=== PATIENT | male | born 1960 | race Caucasian/White ===

== ENCOUNTER 2018-02-02 08:33 | Day surgery (SDC) | payer OTHER ==
[~2018-02-02 08:33] MED LIST: LIDOCAINE 2% MDV 20 ML VIAL As Ordered; PROPOFOL 200 MG/20 ML VIAL As Ordered
[2018-02-02] MEDS: NS 1,000 ML IV (09:30)
== END 2018-02-02 11:00 | disposition home or self-care (01) ==
LOC: M OPP 08:33
DX: Z12.11 Encounter for screening for malignant neoplasm of colon (principal); Z80.0 Family history of malignant neoplasm of digestive organs; Z83.71 Family history of colonic polyps; K57.30 Diverticulosis of large intestine without perforation or abscess without bleeding; K21.9 Gastro-esophageal reflux disease without esophagitis; R12 Heartburn; Z85.828 Personal history of other malignant neoplasm of skin; Z79.82 Long term (current) use of aspirin; Z79.899 Other long term (current) drug therapy; Z80.7 Family history of other malignant neoplasms of lymphoid, hematopoietic and related tissues; Z80.8 Family history of malignant neoplasm of other organs or systems
CPT/HCPCS: 45378

== ENCOUNTER → 2021-06-16 | Outpatient (CLI) | payer OTHER ==
[~2021-06-16] MED LIST changes: +ASPI81TA86 PO; -LIDOCAINE 2% MDV 20 ML VIAL As Ordered; +MULTCAP11 PO; -PROPOFOL 200 MG/20 ML VIAL As Ordered; +RANI150T PO; +VALA1TAB5 PO
--- NOTE | 2021-06-16 11:11 | REP ---
INDICATION: PAIN IN LT HIP. COMPARISON: None. TECHNIQUE: AP view of the pelvis. FINDINGS: An AP view of the pelvis demonstrates an intact bony pelvic ring. Femoral heads are smooth and rounded hip joint spaces are preserved. Periarticular soft tissues are unremarkable. Sacrum and SI joints appear intact. Symphysis pubis is unremarkable. IMPRESSION: Negative AP view of the pelvis. <Electronically signed by Fabio Orozco > 06/16/21 [id number]
--- NOTE | 2021-06-16 11:15 | REP ---
INDICATION: PAIN IN LT HIP. COMPARISON: None. TECHNIQUE: AP and frogleg views of the left hip are obtained. Three views. FINDINGS: The left femoral head is smooth and rounded hip joint space is preserved. Periarticular soft tissues are unremarkable. No fracture or bony destructive lesion is seen. The visualized left hemipelvis is unremarkable. IMPRESSION: The negative left hip radiographs. No acute abnormality. <Electronically signed by Fabio Orozco > 06/16/21 [id number]
== END ==
LOC: M SOG 08:31
PROVIDERS: ATTEND Orthopaedic Surgery Adult Reconstructive Orthopaedic Surgery
DX: M25.552 Pain in left hip (principal)

== ENCOUNTER → 2022-05-15 | Outpatient (CLI) | payer OTHER ==
[~2022-05-15] MED LIST changes: +PROHANCE 279.3MG/ML 15ML VIAL As Ordered ONE
== END ==
LOC: M RAD 08:51
PROVIDERS: ATTEND Family Medicine
DX: R19.02 Left upper quadrant abdominal swelling, mass and lump (principal)

== ENCOUNTER → 2022-08-05 | Outpatient (CLI) | payer OTHER, SELFPAY ==
[~2022-08-05] MED LIST changes: -PROHANCE 279.3MG/ML 15ML VIAL As Ordered ONE
== END ==
LOC: M OUTALCOH 07:40
PROVIDERS: ATTEND Psychiatry & Neurology Psychiatry
DX: Z13.30 Encounter for screening examination for mental health and behavioral disorders, unspecified (principal)

== ENCOUNTER 2022-08-12 10:51 | Outpatient (RCR) | payer OTHER | END 2022-08-27 | LOC: M OUTALCOH 10:51 | PROVIDERS: ATTEND Psychiatry & Neurology Psychiatry | DX: Z03.89 Encounter for observation for other suspected diseases and conditions ruled out (principal) ==

== ENCOUNTER → 2024-06-04 | Outpatient (CLI) | payer OTHER ==
[~2024-06-04] MED LIST changes: +E-Z-GAS II EFFERVESCENT PACKET (SODIUM BICARB./CITRIC ACID/SIMETHICONE) As Ordered ONE; +E-Z-HD 98% w/w 340GM SUSP BTL As Ordered ONE; +E-Z-PAQUE 96% w/w SUSP 176GM BTL As Ordered ONE
== END ==
LOC: M RAD 08:34
PROVIDERS: ATTEND Family Medicine
DX: K22.89 Other specified disease of esophagus (principal); K21.9 Gastro-esophageal reflux disease without esophagitis; K31.9 Disease of stomach and duodenum, unspecified

== ENCOUNTER → 2024-08-16 | Day surgery (SDC) | payer OTHER ==
[~2024-08-16] VITALS: Ht 180.3 cm; Wt 72.1 kg
[~2024-08-16] MED LIST changes: -E-Z-GAS II EFFERVESCENT PACKET (SODIUM BICARB./CITRIC ACID/SIMETHICONE) As Ordered ONE; -E-Z-HD 98% w/w 340GM SUSP BTL As Ordered ONE; -E-Z-PAQUE 96% w/w SUSP 176GM BTL As Ordered ONE; +ECOT81TA5 PO; +FAMO40TA3 PO; +LIDOCAINE 2% 100MG/5ML SDV (FOR ANES.) As Ordered ONE; +MULTTAB61 PO; +NS 1,000 ML IV ONE; +propofoL 200 MG/20 ML VIAL As Ordered ONE
[2024-08-16 09:05] VITALS: BP 105/74; TEMP 97.8; O2SAT 95
== END | disposition home or self-care (01) ==
LOC: M OPP 07:24
PROVIDERS: ATTEND Surgery
DX: K57.30 Diverticulosis of large intestine without perforation or abscess without bleeding (principal); Z80.0 Family history of malignant neoplasm of digestive organs; R13.12 Dysphagia, oropharyngeal phase; R12 Heartburn; Z79.810 Long term (current) use of selective estrogen receptor modulators (SERMs)